=== PATIENT | female | born 1960 | race Caucasian/White ===

== ENCOUNTER → 2017-02-13 | Day surgery (SDC) | payer BC | END | disposition home or self-care (01) | LOC: FMAMMOTONE 08:47 | PROVIDERS: ATTEND Surgery Surgical Oncology | PROC: 0HBT3ZX Excision of Right Breast, Percutaneous Approach, Diagnostic (ICD-10-PCS; principal; 2017-02-13) | DX: R92.1 Mammographic calcification found on diagnostic imaging of breast (principal); Z53.8 Procedure and treatment not carried out for other reasons | CPT/HCPCS: 19081 ==

== ENCOUNTER 2017-12-19 09:31 | Emergency (ER) | payer BC ==
[2017-12-19 09:48] VITALS: BP 136/88; PULSE 105; TEMP 98.4; BMI 20.2
--- NOTE | 2017-12-19 10:37 | PDOC ---
History of Present Illness - General Chief Complaint: Injury Stated Complaint: LT HAND PAIN Time Seen by Provider: 12/19/17 10:26 History Source: Patient Exam Limitations: No Limitations - History of Present Illness Occurred: reports: other Severity: reports: mild Pain Location: reports: upper extremity Method of Injury: Yes: fall Modifying Factors: improves with: None Loss of Consciousness: no loss of consciousness Associated Symptoms (Fall): denies symptoms Past History - Travel Traveled outside of the country in the last 30 days: No - Past Medical History Allergies/Adverse Reactions: Allergies Allergy/AdvReac Type Severity Reaction Status Date / Time [id number] Allergy Swelling Uncoded 12/19/17 09:44 Home Medications: Ambulatory Orders Amlodipine Besylate [Norvasc -] 5 mg PO DAILY #14 tablet 03/24/13 Lisinopril [Prinivil] 20 mg PO DAILY 03/24/13 Lisinopril [Prinivil] 20 mg PO DAILY #14 tablet 03/24/13 Spironolactone 25 mg PO DAILY 03/24/13 Cancer: Yes (BREAST) COPD: No HTN: Yes - Suicide/Smoking/Psychosocial Hx Smoking History: Current some day smoker Have you smoked in the past 12 months: No Number of Cigarettes Smoked Daily: 14 Information on smoking cessation initiated: No Hx Alcohol Use: Yes (SOCIAL) Patient Lives Alone: No Lives with/in: spouse/SO Review of Systems - Review of Systems Able to Perform ROS?: No Constitutional: No: Symptoms Reported Musculoskeletal: Yes: Joint Pain Integumentary: Yes: Lumps Neurological: No: Symptoms reported Hematologic/Lymphatic: No: Symptoms Reported *Physical Exam - Vital Signs Last Vital Signs Temp Pulse Resp BP Pulse Ox 98.4 F 105 H 19 136/88 98 12/19/17 09:44 12/19/17 09:44 12/19/17 09:44 12/19/17 09:44 12/19/17 09:44 - Physical Exam General Appearance: Yes: Nourished, Appropriately Dressed. No: Apparent Distress Extremity: positive: Normal Capillary Refill, Tender (Lateral aspect of right wrist and distal aspect of ulna), Swelling. negative: Normal Range of Motion Integumentary: positive: Swelling (generalized over right wrist). negative: Ecchymosis Procedures - Splinting Splint Location: Right: Forearm Hand-Made Type: orthoglass Splint Type: Yes: Short Arm Post-Proc Neuro Vasc Exam: normal Candido Bandage: 3" Sling: Yes Complications: No Good repositioning: Yes ED Treatment Course - RADIOLOGY Radiology Studies Ordered: Category Date Time Status FOREARM- RIGHT [RAD] Stat Radiology 12/19/17 10:29 Ordered WRIST- RIGHT [RAD] Stat Radiology 12/19/17 10:29 Ordered Medical Decision Making - Medical Decision Making 12/19/17 10:33 Patient injury after falling 3 days ago now complaining of right wrist pain. Patient exam did have tenderness over the distal aspect of right ulna. patient concerning for fracture. Patient ordered for x-ray. 12/19/17 11:01 Patient with displaced distal ulnar fracture. Patient was placed in splint and will be given referral to Dr. Daniels. Patient also placed in sling for comfort measures. *DC/Admit/Observation/Transfer Diagnosis at time of Disposition: Fracture of forearm, distal, left, closed Qualifiers: Encounter type: initial encounter Qualified Code(s): S52.92XA - Unspecified fracture of left forearm, initial encounter for closed fracture - Discharge Dispostion Disposition: HOME Condition at time of disposition: Good - Referrals Referrals: Omi Daniels MD [Staff Physician] - - Patient Instructions Printed Discharge Instructions: How to Use a Sling Additional Instructions: Please use sling during the day and may remove at night. Follow-up with Dr. Daniels - Post Discharge Activity
== END 2017-12-19 11:14 | disposition home or self-care (01) ==
LOC: JERFT 09:31
PROC: 2W3CX1Z Immobilization of Right Lower Arm using Splint (ICD-10-PCS; principal; 2017-12-19)
DX: S52.91XA Unspecified fracture of right forearm, initial encounter for closed fracture (principal); W19.XXXA Unspecified fall, initial encounter; Y93.89 Activity, other specified; Y92.9 Unspecified place or not applicable; Z85.3 Personal history of malignant neoplasm of breast; I10 Essential (primary) hypertension; F17.210 Nicotine dependence, cigarettes, uncomplicated
CPT/HCPCS: 73090-TC-RT-FY; 73110-TC-RT-FY; 99281-25